=== PATIENT | female | born 1995 | race Caucasian/White ===

== ENCOUNTER 2019-10-05 13:46 | Emergency (ER) | payer OTHER, SELFPAY ==
[2019-10-05 13:56] VITALS: BP 115/69; PULSE 88; RESP 14; TEMP 37.2; O2SAT 100
--- NOTE | 2019-10-05 14:08 | ED.GENADULT ---
HPI - General Adult General Chief complaint: Upper Respiratory Infection Stated complaint: sore throat/vaginal discharge Time Seen by Provider: 10/05/19 14:08 Source: patient and RN notes reviewed Mode of arrival: ambulatory Limitations: no limitations History of Present Illness HPI narrative: This is a 24 years old female presented office for intermittent scratchy throat for 1 week especially after she eats something. Denies associated symptoms such as fever, cough, shortness of breath or chest pain. She also complains of vaginal discharge for 1 week with thick white discharge. She said the discharge is different than what she used to have; concerned it may be yeast. She is sexually active, she does not concern for STD however since she is here she wanted get tested. She only had one partner. Related Data Allergies Allergy/AdvReac Type Severity Reaction Status Date / Time Sulfa (Sulfonamide Allergy Hives Verified 10/05/19 14:11 Antibiotics) Review of Systems Review of Systems: Narrative: CONSTITUTIONAL: Denies fever or feeling ill ENT: Denies congestion or ears pain CARDIOVASCULAR: Denies chest pain RESPIRATORY: Denies dyspnea, wheezing, cough GASTROINTESTINAL: Denies abdominal pain, nausea, vomiting, diarrhea. GENITOURINARY: Denies urinary symptoms such as pain, blood or urgency SKIN: Denies rash MUSCULOSKELETAL: Denies acute back pain NEUROLOGIC: Denies lightheaded PMFSH Comments At time of signature, I agree with nursing past medical, surgical, social and family history. There is no relevant family history pertinent to the presenting complaint. Exam Narrative: Exam Narrative: GENERAL: This is a well-nourished, well-developed patient, in no apparent distress. EARS: External ears normal, auditory canals clear and without drainage, TMs normal without perforation. Hearing grossly intact. NOSE: External nose normal with no obvious nasal discharge, nares without redness, no rhinorrhea. THROAT: Mucous membranes moist, posterior pharynx clear. NECK: Neck supple, non-tender without lymphadenopathy, masses or thyromegaly. CARDIOVASCULAR: Regular rate and rhythm without murmurs, gallops, or rubs. RESPIRATORY: Clear to auscultation. Breath sounds equal bilaterally. No wheezes, rales, or rhonchi. GASTROINTESTINAL: Abdomen soft, non-tender, nondistended. Bowel sounds are active. No hepato-splenomegaly, or palpable masses. No guarding. : Exam chaperoned by radiologist tech Caren, outer vaginal appear normal without obvious lesion, cervix normal without cervical tenderness. White thick curdy white discharge noted in the vaginal canal. SKIN: warm, intact with no suspicious lesions or rash, good texture and turgor. NEURO: awake, alert, and oriented to person, place and time. There were no obvious focal neurologic abnormalities. Steady gait [place] Coma Scale Eye Opening: Spontaneous 4 [place] Coma Scale Motor: Obeys Commands 6 [place] Coma Scale Verbal: Oriented 5 Course Vital Signs Vital signs: Vital Signs Temperature 99.0 F 10/05/19 13:56 Pulse Rate 88 10/05/19 13:56 Respiratory Rate 14 10/05/19 13:56 Blood Pressure 115/69 10/05/19 13:56 Pulse Oximetry 100 10/05/19 13:56 Temperature 99.0 F 10/05/19 13:56 Pulse Rate 88 10/05/19 13:56 Respiratory Rate 14 10/05/19 13:56 Blood Pressure 115/69 10/05/19 13:56 Pulse Oximetry 100 10/05/19 13:56 Medical Decision Making MDM Narrative Medical decision making narrative: I offered treatment for STD until we get the result back, patient declined at this time. She also said that she had STD in the past and it felt different so she highly doubt this is STD; therefore she rather wait till she gets the result back. Discharge instructions reviewed with patient, as well as provided in writing per nursing staff. The instructions also include specific and strict return/GO TO THE ER as well as f/u information. All questions have been answered,
== END 2019-10-05 14:39 | disposition home or self-care (01) ==
PROVIDERS: Emergency Provider Nurse Practitioner
DX: J02.9 Acute pharyngitis, unspecified (principal); N89.8 Other specified noninflammatory disorders of vagina
CPT/HCPCS: 81025; 87081; 87491; 87591; 87661; 87880; 99214; G0463

== ENCOUNTER 2019-12-12 10:03 | Emergency (ER) | payer OTHER, SELFPAY ==
[2019-12-12 10:31] VITALS: BP 110/58; PULSE 92; RESP 16; TEMP 36.9; O2SAT 99
--- NOTE | 2019-12-12 10:44 | ED.NAVMDI ---
HPI - Nausea/Vomiting/Diarrhea General Chief complaint: Nausea/Vomiting/Diarrhea Stated complaint: NAUSEA Time Seen by Provider: 12/12/19 10:44 Source: patient and RN notes reviewed Mode of arrival: ambulatory Limitations: no limitations History of Present Illness HPI Narrative: This is a 24 years old female presented to the office for evaluations of nauseous intermittently for 1 week. Symptoms began mostly in the morning associated with abdominal bloating and pain at times. He has not tried any medication for symptoms. Denies changes in her diet, drinks, or medications. Her boyfriend is sick with similar symptoms. Denies chance of . She does not drink carbonated or caffeinated drinks. Related Data Home Medications Medication Instructions Recorded Confirmed No Home Medications 12/12/19 12/12/19 Allergies Allergy/AdvReac Type Severity Reaction Status Date / Time Sulfa (Sulfonamide Allergy Hives Verified 12/12/19 10:40 Antibiotics) Review of Systems Review of Systems: Narrative: CONSTITUTIONAL: Denies fever ENT: Denies rhinorrhea, congestion, sore throat CARDIOVASCULAR: Denies chest pain, palpitation RESPIRATORY: Denies dyspnea, cough GASTROINTESTINAL: Reports left side upper abdominal pain with nausea. Denies vomiting, diarrhea. GENITOURINARY: Denies urinary symptoms SKIN: Denies rash MUSCULOSKELETAL: Denies acute back pain NEUROLOGIC: Denies lightheaded All other systems reviewed are negative, except as documented in HPI. PMFSH Social History Social History Gender identity (if verbalized by the patient): Female Comments At time of signature, I agree with nursing past medical, surgical, social and family history. There is no relevant family history pertinent to the presenting complaint. Exam Narrative: Exam Narrative: GENERAL: This is a well-nourished, well-developed patient, in no apparent distress. EYES: Sclera clear/white. Vision is grossly intact. EARS: External ears normal, auditory canals clear and without drainage, TMs normal without perforation. Hearing grossly intact. NOSE: External nose normal with no obvious nasal discharge, nares without redness, no rhinorrhea. THROAT: Mucous membranes moist, posterior pharynx clear. NECK: Neck supple, non-tender without lymphadenopathy, masses or thyromegaly. CARDIOVASCULAR: Regular rate and rhythm without murmurs, gallops, or rubs. RESPIRATORY: Clear to auscultation. Breath sounds equal bilaterally. No wheezes, rales, or rhonchi. GASTROINTESTINAL: Abdomen soft, non-tender, nondistended. Bowel sounds are active. No hepato-splenomegaly, or palpable masses. No guarding. SKIN: warm, intact with no suspicious lesions or rash, good texture and turgor. NEURO: awake, alert, and oriented to person, place and time. There were no obvious focal neurologic abnormalities. Steady gait [place] Coma Scale Eye Opening: Spontaneous 4 [place] Coma Scale Motor: Obeys Commands 6 [place] Coma Scale Verbal: Oriented 5 Course Vital Signs Vital signs: Vital Signs Temperature 98.5 F 12/12/19 10:31 Pulse Rate 92 12/12/19 10:31 Respiratory Rate 16 12/12/19 10:31 Blood Pressure 110/58 L 12/12/19 10:31 Pulse Oximetry 99 12/12/19 10:31 Temperature 98.5 F 12/12/19 10:31 Pulse Rate 92 12/12/19 10:31 Respiratory Rate 16 12/12/19 10:31 Blood Pressure 110/58 L 12/12/19 10:31 Pulse Oximetry 99 12/12/19 10:31 MDM - Nausea/Vomiting/Diarrhea MDM Narrative Medical decision making narrative: Discharge instructions reviewed with patient, as well as provided in writing per nursing staff. The instructions also include specific and strict return/GO TO THE ER as well as f/u information. All questions have been answered, and the patient deny any further questions with discharge and discharge plan. Differential Diagnosis Differential diagnosis: Likely food poisoning, gastroenteritis and
== END 2019-12-12 11:01 | disposition home or self-care (01) ==
PROVIDERS: Emergency Provider Nurse Practitioner
DX: R11.0 Nausea (principal)
CPT/HCPCS: 99211; G0463